=== PATIENT | female | born 1955 | race Caucasian/White ===

== ENCOUNTER 2017-06-25 09:03 | Emergency (ER) | payer BC ==
[2017-06-25 09:12] VITALS: BMI 28.8
[2017-06-25 09:14] VITALS: BP 126/69; PULSE 89; RESP 20; TEMP 98.6; O2SAT 98
[2017-06-25] MEDS ORDERED: Oxycodone/Acetaminophen 5/325 mg Tab PO STA (09:52)
[2017-06-25] MEDS ORDERED: Oxycodone/Acetaminophen 5/325 mg Tab ONE (10:13)
--- NOTE | 2017-06-25 10:25 | ED PDOC ---
Upper Extremity Pain/Injury Time Seen by Provider: 06/25/17 09:29 Chief Complaint (Nursing): Upper Extremity Problem/Injury Chief Complaint (Provider): Bilateral wrist pain History Per: Patient History/Exam Limitations: no limitations Onset/Duration Of Symptoms: Days (1) Current Symptoms Are (Timing): Still Present Quality: "Pain" Exacerbating Factor(s): Strenuous Use Of Affected Area Additional Complaint(s): 62yo female with history of arthritis, diabetes, presents to the ER with complaints of bilateral wrist pain since yesterday. Patient took Motrin last night for pain with no relief of symptoms. She reports decreased ROM in her wrists due to pain. Patient denies any weakness, numbness, tingling, injury or trauma. She offers no other medical complaints. Past Medical History Reviewed: Historical Data, Nursing Documentation, Vital Signs Vital Signs: Last Vital Signs Temp 98.6 F 06/25/17 09:13 Pulse 89 06/25/17 09:13 Resp 20 06/25/17 09:13 BP 126/69 06/25/17 09:13 Pulse Ox 98 06/25/17 09:13 - Medical History PMH: Diabetes, HTN, Hypercholesterolemia, Rheumatoid Arthritis - Surgical History Surgical History: No Surg Hx - Family History Family History: States: Unknown Family Hx - Immunization History Hx Tetanus Toxoid Vaccination: No Hx Influenza Vaccination: No Hx Pneumococcal Vaccination: No - Home Medications Home Medications: Ambulatory Orders Medication Instructions Recorded Aspirin [Aspirin EC] 81 mg PO DAILY 03/23/14 Carvedilol [Coreg] 12.5 mg PO DAILY 03/23/14 Dexlansoprazole [Dexilant] 60 mg PO DAILY 03/23/14 Insulin Lispro Mix 75/25 [humalog 1 units SC BID 03/23/14 Mix 75/25 75 U/Ml-25 U/Ml 10 Ml] Olmesartan/Hydrochlorothiazide 1 tab PO DAILY 03/23/14 [Benicar Hct 12.5 mg-20 mg] Rosuvastatin Calcium [Crestor] 10 mg PO HS 03/23/14 Acetaminophen with Codeine 1 tab PO Q6H PRN #10 tab 06/25/17 [Tylenol with Codeine No. 3 300 mg-30 mg] Canagliflozin [Invokana] 300 mg PO DAILY 06/25/17 Celecoxib 200 mg PO DAILY 06/25/17 Folic Acid 1 mg PO DAILY 06/25/17 Meclizine [Antivert] 2 tab PO TID 06/25/17 Naproxen [Naprosyn] 500 mg PO BID PRN #15 tablet 06/25/17 Pregabalin [Lyrica] 100 mg PO TID 06/25/17 - Allergies Allergies/Adverse Reactions: Allergies Allergy/AdvReac Type Severity Reaction Status Date / Time No Known Allergies Allergy Verified 06/25/17 09:25 Review of Systems ROS Statement: Except As Marked, All Systems Reviewed And Found Negative Constitutional: Negative for: Fever, Chills Musculoskeletal: Positive for: Hand Pain (bilateral wrist pain) Neurological: Negative for: Weakness, Numbness Physical Exam - Reviewed Nursing Documentation Reviewed: Yes Vital Signs Reviewed: Yes - Physical Exam Appears: Positive for: Non-toxic, No Acute Distress Head Exam: Positive for: ATRAUMATIC, NORMAL INSPECTION, NORMOCEPHALIC Skin: Positive for: Normal Color Eye Exam: Positive for: Normal appearance Neck: Positive for: Supple Cardiovascular/Chest: Positive for: Regular Rate, Rhythm Respiratory: Positive for: Normal Breath Sounds Pulses-Radial (L): 2+ Pulses-Radial (R): 2+ Extremity: Positive for: Tenderness (tenderness to posterior bilateral wrists). Negative for: Normal ROM (decreased ROM due to pain in bilateral wrists), Deformity Neurologic/Psych: Positive for: Alert, Oriented. Negative for: Motor/Sensory Deficits - ECG O2 Sat by Pulse Oximetry: 98 (RA) Pulse Ox Interpretation: Normal Medical Decision Making Medical Decision Making: Impression: Bilateral wrist pain Plan: -- XR bilateral wrist -- XR bilateral hand -- Toradol 30 mg IM -- Percocet 1 tab PO Accession No. : [id number] Patient Name / ID : DARCI MUNIZ / [id number] Exam Date : 06/25/2017 09:53:13 ( Approved ) Study Comment : Sex / Age : F / 62Y Creator : Brenda Lara Dictator : Brenda Lara Cellophane Press Operator : Imagery Intelligence : Brenda Lara Approver2 : Report Date : 06/25/2017 10:56:48 My Comment : PROCEDURE: Bilateral Wrists Radiographs. HISTORY: Posterior wrist pain COMPARISON: None. FINDINGS: BONES: Right Carpal Bones: Normal. No fracture or degenerative changes. Left Carpal Bones: Normal. No fracture or degenerative changes. Right Distal Radius and Ulna: No fracture or degenerative changes. Left Distal Radius and Ulna: No fracture or degenerative changes. JOINT SPACES: Right Wrist: Normal. No degenerative changes. Left Wrist: Normal. No degenerative changes. SOFT TISSUES: Right Wrist: Dorsal soft tissue swelling distal carpal row - carpal metacarpal base level per lateral projectionAtherosclerotic vascular calcifications are present. . Left Wrist: Atherosclerotic vascular calcifications are present. . OTHER FINDINGS: None. IMPRESSION: No fracture or lytic lesions. No erosions. Mid Nonspecific soft tissue swelling dorsal carpus Accession No. : [id number] Patient Name / ID : DARCI MUNIZ / [id number] Exam Date : 06/25/2017 09:56:48 ( Approved ) Study Comment : Sex / Age : F / 62Y Creator : Brenda Lara Dictator : Brenda Lara Cell[employer]ane Press Operator : Imagery Intelligence : Brenda Lara Approver2 : Report Date : 06/25/2017 10:54:19 My Comment : PROCEDURE: Bilateral hand radiographs. HISTORY: Bilateral posterior hand pain COMPARISON: None. FINDINGS: BONES: Right Hand: Minimal osteophytic changes distal interphalangeal joint level Left Hand: Minimal osteophytic changes distal interphalangeal joint level. Extraosseous soft tissue calcification/ossification radial side 2nd digit bordering the distal interphalangeal joint. Sub mm ossifications/ ossification also extraosseous ulnar-sided 5th proximal interphalangeal joint No erosions appreciated JOINTS: Right Hand: As above Left Hand: As above SOFT TISSUES: Right Hand: Normal. Left Hand: Normal. OTHER FINDINGS: Technologist is noted the patient could not remove the ring of the right 4th digit duties swelling- no prominent/focal radiographic soft tissue swelling IMPRESSION: No fracture or lytic lesions. Bilateral senescent changes probably relating to mild bilateral early osteoarthrosis. No erosions appreciated Left hand extraosseous soft tissue calcifications/ossifications as detailed above -nonspecific Scribe Attestation: Documented by Katy Ordaz, acting as a scribe for Taisha Kathleen MD. Provider Scribe Attestation: All medical record entries made by the Scribe were at my direction and personally dictated by me. I have reviewed the chart and agree that the record accurately reflects my personal performance of the history, physical exam, medical decision making, and the department course for this patient. I have also personally directed, reviewed, and agree with the discharge instructions and disposition. Disposition - Clinical Impression Clinical Impression: Arthralgia of wrist - Disposition Referrals: [facility] [Outside] Kapil Beckford MD [Family Provider] - Disposition: Routine/Home Disposition Time: 10:48 Condition: STABLE Prescriptions: Acetaminophen with Codeine [Tylenol with Codeine No. 3 300 mg-30 mg] 1 tab PO Q6H PRN #10 tab PRN Reason: Pain, Severe (8-10) Naproxen [Naprosyn] 500 mg PO BID PRN #15 tablet PRN Reason: Pain, Moderate (4-7) Instructions: Joint Pain Forms: [email or web address] (Tunisian), [facility] School/Work Excuse Print Language: TAMAZIGHT
--- NOTE | 2017-06-25 10:56 | RAD ---
PROCEDURE: Bilateral hand radiographs. HISTORY: Bilateral posterior hand pain COMPARISON: None. FINDINGS: BONES: Right Hand: Minimal osteophytic changes distal interphalangeal joint level Left Hand: Minimal osteophytic changes distal interphalangeal joint level. Extraosseous soft tissue calcification/ossification radial side 2nd digit bordering the distal interphalangeal joint. Sub mm ossifications/ ossification also extraosseous ulnar-sided 5th proximal interphalangeal joint No erosions appreciated JOINTS: Right Hand: As above Left Hand: As above SOFT TISSUES: Right Hand: Normal. Left Hand: Normal. OTHER FINDINGS: Technologist is noted the patient could not remove the ring of the right 4th digit duties swelling- no prominent/focal radiographic soft tissue swelling IMPRESSION: No fracture or lytic lesions. Bilateral senescent changes probably relating to mild bilateral early osteoarthrosis. No erosions appreciated Left hand extraosseous soft tissue calcifications/ossifications as detailed above -nonspecific
--- NOTE | 2017-06-25 10:58 | RAD ---
PROCEDURE: Bilateral Wrists Radiographs. HISTORY: Posterior wrist pain COMPARISON: None. FINDINGS: BONES: Right Carpal Bones: Normal. No fracture or degenerative changes. Left Carpal Bones: Normal. No fracture or degenerative changes. Right Distal Radius and Ulna: No fracture or degenerative changes. Left Distal Radius and Ulna: No fracture or degenerative changes. JOINT SPACES: Right Wrist: Normal. No degenerative changes. Left Wrist: Normal. No degenerative changes. SOFT TISSUES: Right Wrist: Dorsal soft tissue swelling distal carpal row - carpal metacarpal base level per lateral projectionAtherosclerotic vascular calcifications are present. . Left Wrist: Atherosclerotic vascular calcifications are present. . OTHER FINDINGS: None. IMPRESSION: No fracture or lytic lesions. No erosions. Mid Nonspecific soft tissue swelling dorsal carpus
== END 2017-06-25 11:01 | disposition home or self-care (01) ==
LOC: H.ER 09:03
DX: M25.532 Pain in left wrist (principal); M25.531 Pain in right wrist; E11.9 Type 2 diabetes mellitus without complications; E78.00 Pure hypercholesterolemia, unspecified; M06.9 Rheumatoid arthritis, unspecified; I10 Essential (primary) hypertension; Z79.4 Long term (current) use of insulin; Z79.82 Long term (current) use of aspirin
CPT/HCPCS: 29125; 73110; 73130; 82948; 96372; 99284; J1885